=== PATIENT | female | born 1985 | race Two or more races ===

== ENCOUNTER 2017-04-28 00:29 | Emergency (ER) | payer OTHER ==
[~2017-04-28] VITALS: Ht 172.7 cm; Wt 90.7 kg
== END 2017-04-28 02:30 | disposition home or self-care (01) ==
LOC: ER 00:29
DX: M94.0 Chondrocostal junction syndrome [Tietze] (principal); I10 Essential (primary) hypertension

== ENCOUNTER 2017-08-04 04:01 | Emergency (ER) | payer OTHER ==
[~2017-08-04] VITALS: Ht 172.7 cm; Wt 90.7 kg
[2017-08-04] MEDS ORDERED: METOPROLOL SUC100 MG (04:25)
[2017-08-04] MEDS ORDERED: AMILORIDE HCL5 MG (04:25)
== END 2017-08-04 09:11 | disposition home or self-care (01) ==
LOC: ER 04:01
DX: K29.60 Other gastritis without bleeding (principal)

== ENCOUNTER 2017-08-21 15:04 | Inpatient (IN) | payer OTHER ==
[~2017-08-21] VITALS: Ht 172.7 cm; Wt 90.7 kg
[~2017-08-21 15:04] MED LIST: AMILORIDE HCL5 MG; METOPROLOL SUC100 MG
[2017-08-21] MEDS ORDERED: NORVASC5 MG (16:16)
== END 2017-08-24 17:52 | disposition home or self-care (01) | DRG 305 ==
LOC: ER 15:04 → MEDJ 08-22 08:11 → SEC-K 08-22 08:11 → MEDJ 08-22 11:20
PROC: B030ZZZ Magnetic Resonance Imaging (MRI) of Brain (ICD-10-PCS; principal; 2017-08-22)
PROC: B246ZZZ Ultrasonography of Right and Left Heart (ICD-10-PCS; 2017-08-22)
PROC: B345ZZZ Ultrasonography of Bilateral Common Carotid Arteries (ICD-10-PCS; 2017-08-22)
PROC: B348ZZZ Ultrasonography of Bilateral Internal Carotid Arteries (ICD-10-PCS; 2017-08-22)
PROC: 4A00X4Z Measurement of Central Nervous Electrical Activity, External Approach (ICD-10-PCS; 2017-08-23)
DX: I16.9 Hypertensive crisis, unspecified (principal); I10 Essential (primary) hypertension; R55 Syncope and collapse; K29.60 Other gastritis without bleeding; E66.8 Other obesity; M94.0 Chondrocostal junction syndrome [Tietze]
CPT/HCPCS: 70551

== ENCOUNTER 2017-08-27 18:19 | Emergency (ER) | payer OTHER ==
[~2017-08-27] VITALS: Ht 172.7 cm; Wt 90.7 kg
[~2017-08-27 18:19] MED LIST changes: +NORVASC5 MG
[2017-08-27] MEDS ORDERED: LOSARTAN-HCTZ1 EACH (19:11)
== END 2017-08-28 01:36 | disposition home or self-care (01) ==
LOC: ER 18:19
DX: R07.89 Other chest pain (principal); R10.84 Generalized abdominal pain

== ENCOUNTER 2019-11-16 22:45 | Emergency (ER) | payer OTHER ==
[~2019-11-16] VITALS: Ht 172.7 cm; Wt 90.7 kg
[~2019-11-16 22:45] MED LIST changes: +LOSARTAN-HCTZ1 EACH
[2019-11-17] MEDS ORDERED: BACTRIM DS TAB1 EACH PO (03:38)
== END 2019-11-17 04:05 | disposition home or self-care (01) ==
LOC: ER 22:45
DX: R10.31 Right lower quadrant pain (principal); R11.0 Nausea; A08.8 Other specified intestinal infections; Z03.818 Encounter for observation for suspected exposure to other biological agents ruled out

== ENCOUNTER 2020-09-10 16:32 | Emergency (ER) | payer OTHER ==
[~2020-09-10] VITALS: Ht 172.7 cm; Wt 95.3 kg
[~2020-09-10 16:32] MED LIST changes: +BACTRIM DS TAB1 EACH PO
== END 2020-09-10 20:14 | disposition home or self-care (01) ==
LOC: ER 16:32
DX: I10 Essential (primary) hypertension (principal)